=== PATIENT | male | born 1995 | race Caucasian/White ===

== ENCOUNTER 2021-03-14 11:54 | Emergency (ER) | payer OTHER ==
[~2021-03-14] VITALS: Ht 180.3 cm; Wt 68.2 kg
[~2021-03-14 11:54] MED LIST: CARB200T6 PO; LAMO100 PO; LEVE250T55 PO
[2021-03-14 12:00] VITALS: BP 142/76
== END 2021-03-14 12:37 | disposition left against medical advice (07) ==
LOC: EMS 11:57
DX: M25.572 Pain in left ankle and joints of left foot (principal); Z53.21 Procedure and treatment not carried out due to patient leaving prior to being seen by health care provider